=== PATIENT | female | born 1985 | race Two or more races ===

== ENCOUNTER → 2018-06-11 | Outpatient (CLI) | payer OTHER | END | disposition home or self-care (01) | LOC: CFH 07:28 | PROVIDERS: ATTEND Nurse Practitioner Family | DX: G44.319 Acute post-traumatic headache, not intractable (principal); R10.2 Pelvic and perineal pain | CPT/HCPCS: 70551; 76700; 76830 ==

== ENCOUNTER 2020-11-01 01:41 | Emergency (ER) | payer OTHER ==
[~2020-11-01] VITALS: Ht 149.9 cm; Wt 62.0 kg
--- NOTE | 2020-11-01 02:04 | NUR ---
PT C/O OF STERNAL AND EPIGASTRIC PAIN THAT RADIATES TO HER BACK. DENIES SOB, N/V/D AND FEVER/CHILLS. ATTACHED TO CARD/SP02/BP MONITORS.VSS . NADN BRETAHING EVEN AND UNLABORED. BED IN LOW, RAILS ENGAGED. CALL LIGHT ON LAP. WCTM
[2020-11-01 02:26] LABS: BASOPHILS % (AUTO) 0 % (0-1); EOSINOPHILS % (AUTO) 0 % (1-7); LYMPHOCYTES % (AUTO) 19 % (22-44); MEAN CORPUSCULAR HGB CONC 35.1 g/dL (32.4-35.8); MEAN PLATELET VOLUME 7.1 fL (7.4-10.4); MONOCYTES % (AUTO) 9 % (2-9); NEUTROPHILS % (AUTO) 72 % (42-75); PLATELET COUNT 321 x10^3/uL (130-400); RED BLOOD COUNT 4.13 x10^6/uL (3.82-5.3); RED CELL DISTRIBUTION WIDTH 12.7 % (9.6-15.2)
[2020-11-01 02:39] LABS: ALANINE AMINOTRANSFERASE 204 U/L (12-78); ALBUMIN 3.5 g/dL (3.4-5.0); ANION GAP 6 mmol/L (5-15); CALCIUM 8.8 mg/dL (8.5-10.1); CHLORIDE 110 mmol/L (98-107); CREATININE 0.65 mg/dL (0.55-1.02)
[2020-11-01 02:44] LABS: ALKALINE PHOSPHATASE 83 U/L (45-117); TOTAL PROTEIN 7.4 g/dL (6.4-8.2); TROPONIN I < 0.015 ng/mL (0.000-0.045)
--- NOTE | 2020-11-01 03:17 | NUR ---
REPORT RECEIVED FROM SHAKIR LOPEZ
--- NOTE | 2020-11-01 03:22 | NUR ---
GAVE REPORT TO AMRITA LOPEZ. TRANSFER OF CARE.
--- NOTE | 2020-11-01 03:30 | NUR ---
RETURNED FROM [employer]. PT SITTING UPRIGHT ON YANG BETANCOURT, VSS. PT DENIES ANY NEEDS AT THIS TIME. CALL LIGHT AND PERSONAL BELONGINGS WITHIN REACH.
[2020-11-01 04:30] VITALS: BP 107/55
--- NOTE | 2020-11-01 04:40 | NUR ---
Patient given discharge instructions and they have confirmed that they understand the instructions. Patient ambulatory with steady gait. NAD, all questions answered appropriately, denies additional needs at this time. No personal belongings left in room after discharge.
== END 2020-11-01 04:42 | disposition home or self-care (01) ==
LOC: ED 02:10
DX: K21.9 Gastro-esophageal reflux disease without esophagitis (principal); R07.89 Other chest pain
CPT/HCPCS: 36415; 71045; 76700; 80053; 83690; 84484; 84703; 85025; 93005; 99285